=== PATIENT | male | born 1950 | race Caucasian/White ===

== ENCOUNTER 2016-11-20 12:11 | Emergency (ER) | payer MEDICARE, OTHER ==
[2016-11-20 12:52] LABS: #Basophils 0.1 thou/uL (0.0-0.2); #Eosinphils 0.4 thou/uL (0.0-0.7); #Lymphocytes 2.4 thou/uL (1.20-3.40); #Monocytes 0.8 thou/uL (0.11-0.59); #Neutrophils 4.2 thou/uL (1.40-6.50); %Basophils 1.2 % (0.0-1.0); %Eosinophils 4.8 % (0.0-10.0); %Monocytes 10.6 % (0.0-10.0); Hematocrit 43.1 % (42.0-52.0); Mean Platelet Volume 9.1 fL (7.4-10.4); Red Blood Cell (RBC) Count 4.59 mill/uL (4.70-6.10); White Blood Cell (WBC) Count 7.9 thou/uL (4.8-10.8)
[2016-11-20 13:08] LABS: Troponin I Less than 0.010 ng/mL (< 0.028)
[2016-11-20 13:10] LABS: Acetaminophen Less than 3.0 mcg/mL (10.0-30.0); Anion Gap 15 mmol/L (10-20); BUN (Urea Nitrogen) 23 mg/dL (8.4-25.7); Calc. Creatinine Clearance 0 mL/min (70-130); Calcium 9.5 mg/dL (7.8-10.44); Carbon Dioxide 27 mmol/L (23-31); Chloride 104 mmol/L (98-107); Estimated GFR-MDRD 66; Salicylate Less than 5.0 mg/dL (15.0-30.0)
--- NOTE | 2016-11-20 13:26 | CT ---
EXAM: NONCONTRAST HEAD CT: HISTORY: Altered mental status. Loss and inability to speak and converse in normal fashion at 11:30 this mor ana. Stroke alert. COMPARISON: None. TECHNIQUE: Noncontrast head CT is performed from the skull base to the skull vertex. FINDINGS: There is a hyperdense focus in the right cerebellar hemisphere measuring 3.1 x 2.7 cm. There is adj acent edema. There is a hyperdense focus in the left frontal lobe, subcortical white matter in loca tion measuring 1.1 x 1.3 cm. There is a hyperdense focus in the left centrum semiovale, near the ve rtex, measuring 1.7 x 1.6 cm. This hyperdensity is also located in the subcortical white matter wit h associated edema and mild sulcal effacement. No midline shift. Basilar cisterns are patent. Int act calvarium. Adequate aeration of the sinuses and mastoid air cells. Cavernous carotid atheroscl erosis. IMPRESSION: Three separate hyperdense foci with what appears to be associated vasogenic edema. Hemorrhagic meta static lesions are favored. Further evaluation with brain MRI is recommended. Results of the study discussed with Dr. Whelan 11/20/16 at 1251 p.m. CODE CR POS: [facility]
--- NOTE | 2016-11-20 13:40 | RAD ---
EXAM: ONE VIEW CHEST: HISTORY: Altered mental status. FINDINGS: Normal cardiac silhouette. The pulmonary vessels and hilum are normal. Costophrenic angles are carter ar. No masses or consolidation. No pneumothorax or osseous abnormalities. IMPRESSION: No acute cardiopulmonary process. POS: [facility]
--- NOTE | 2016-11-20 13:41 | ERRECORD ---
[facility] EMERGENCY RECORD HPI MENTAL STATUS CHANGES (12:22 RWAG) CHIEF COMPLAINT: Patient presents for evaluation of confusion. HISTORIAN: History provided by patient, History provided by patient's spouse, "was having trouble forming words" resolved now. LOCATION: No localizing symptoms. QUALITY: Patient is alert and oriented to person, place and time, [place] coma score is 15. SEVERITY: Maximum severity of symptoms mild, Currently symptoms are mild, Maximum severity of pain rated as 0/10, Current severity of pain rated as 0/10. TIME COURSE: Patient unable to describe onset of symptoms, Symptoms have resolved. ASSOCIATED WITH: Associated symptoms reviewed. EXACERBATED BY: Patient's condition exacerbated by nothing. RELIEVED BY: Patient's condition relieved by nothing. ROS (12:24 RWAG) CONSTITUTIONAL: Negative constitutional review of systems. EYES: Negative eye review of systems. ENT: Negative ears, nose, throat review of systems. CARDIOVASCULAR: Negative cardiovascular review of systems. RESPIRATORY: Negative respiratory review of systems. GI: Negative gastrointestinal review of systems. GENITOURINARY MALE: Negative genitourinary review of systems. MUSCULOSKELETAL: Negative musculoskeletal review of systems. SKIN: Negative skin review of systems. NEUROLOGIC: Negative neurologic review of systems. ENDOCRINE: Negative endocrine review of systems. HEMO/LYMPHATIC: Normal hematologic/lymphatic system review. ALLERGIC/IMMUNOLOGIC: Normal allergy/immunologic system review. PSYCHIATRIC: Negative psychiatric review of systems. NOTES: All systems reviewed, negative except as described above. PAST MEDICAL HISTORY (12:21 JPAR) MEDICAL HISTORY: Notes: MELANOMA CANCER, Flu vaccine up to date, Tetanus immunization up to date, Past medical history includes endocrine disease, hypothyroidism, Past medical history includes history of hypertension. MALE SURGICAL HISTORY: Surgical history of appendectomy. PSYCHIATRIC HISTORY: No previous psychiatric history. SOCIAL HISTORY: Patient drinks every day, less than 5 drinks per day, Patient denies drug use, Patient currently uses tobacco, chews tobacco. KNOWN ALLERGIES No Known Drug Allergies CURRENT MEDICATIONS No recorded medications &a-1R&a+25V*p+0X*i1101L*c152B*c15G*c2P*p-0X&a-25V&a+1R Name: Itz Viramontes : [id number] MedRec: [id number] AcctNum: [id number] Prepared: Heriberto Nov 20, 2016 14:12 by Interface Page 1 of 2 pMD [facility] EMERGENCY RECORD VITAL SIGNS (12:15 JPAR) VITAL SIGNS: BP: 177/85, Pulse: 67, Resp: 18, Temp: 98.9 (Oral), Pain: 0, O2 sat: 100 on Room Air, Time: 11/20/2016 12:15. PHYSICAL EXAM (12:24 RWAG) CONSTITUTIONAL: Vital Signs Reviewed. HEAD: Head exam normal. EYES: Eye exam normal. ENT: ENT exam normal. NECK: Neck exam normal. RESPIRATORY CHEST: Respiratory and chest exam normal. CARDIOVASCULAR: Cardiovascular assessment normal. ABDOMEN MALE: Abdominal exam normal. BACK: Back exam normal. UPPER EXTREMITY: Upper extremity exam normal. LOWER EXTREMITY: Lower extremity exam normal. NEURO: Neuro exam normal, Neuro exam findings include patient oriented to person, place and time, Speech normal, Gait normal, [place] coma scale 15. SKIN: Skin exam normal. LYMPHATIC: Lymphatic exam normal. PSYCHIATRIC: Psychiatric exam normal. EKG INTERPRETATION (12:31 RWAG) 12 LEAD EKG INTERPRETATION: 12 lead EKG interpreted by Emergency Department Physician at time of study, 12 lead EKG shows normal sinus rhythm, Rate (beats per minute): 63, with no ectopics, No previous EKG available for comparison, Conduction with, incomplete right bundle branch block, T waves normal, [place] normal, Clinical impression:, non-specific EKG. DOCTOR NOTES (12:33 RWAG) TEXT: 12:33 initial NIH score 3. PROBLEM LIST No recorded problems DIAGNOSIS (12:53 RWAG) FINAL: PRIMARY: hemorhagic stroke, ADDITIONAL: brain metastasis. PRESCRIPTION No recorded prescriptions DISPOSITION PATIENT: Disposition Type: Transfer, Disposition: Transfer to [facility], Disposition Transport: Ambulance, Condition: Good. (12:50 RWAG) Patient left the department. (13:33 JPAR) Hernandez: JPAR=Parambryson, Edward WILSON RWAG=MD Tip, Billy &a-1R&a+25V*p+0X*[id number]*c152B*c15G*c2P*p-0X&a-25V&a+1R Name: Itz Viramontes : [id number] MedRec: [id number] AcctNum: [id number] Prepared: Sat Nov 20, 2016 14:12 by Interface Page 2 of 2 pMD MTDD
--- NOTE | 2016-11-20 13:47 | PICIS ---
[facility] EMERGENCY RECORD TRIAGE ([facility] Nov 20, 2016 12:19 JPAR) TRIAGE NOTES: PATIENT REPORTS BECOMING DISORIENTED ABOUT 1130. ([facility] Nov 20, 2016 12:19 JPAR) PATIENT: NAME: Itz Viramontes, AGE: 66, GENDER: male, : [id number], TIME OF GREET: Sat Nov 20, 2016 12:12, PREFERRED LANGUAGE: Maori, ECODE BILLING MAP: [facility], SSN: [id number], Zip Code: [address], KG WEIGHT: 90.72, PHONE: , , , PERSON ID: [id number]. ([facility] Nov 20, 2016 12:19 JPAR) COMPLAINT: DISORIENTED/STROKE SYMPTOMS. ([facility] Nov 20, 2016 12:19 JPAR) ADMISSION: URGENCY: 2 Emergent, ADMISSION SOURCE: Home, TRANSPORT: CAR, BED: ER -02. ([facility] Nov 20, 2016 12:19 JPAR) SIRS SCORING: Heart Rate 55-109 (0), Temp range 96.8-101.1 (0), respiratory rate 12-24 (0), Mental Status altered: no (0), Infection or Suspected Infection: No. (12:21 JPAR) TRIAGE SCREENING: Patient denies suicidal ideation, Patient denies presence of domestic violence. (12:21 JPAR) PROVIDERS: TRIAGE NURSE: Edward Sin RN. ([facility] Nov 20, 2016 12:19 JPAR) VITAL SIGNS: BP 177/85, Pulse 67, Resp 18, Temp 98.9, (Oral), Pain 0, O2 Sat 100, on Room Air, Time 11/20/2016 12:15. (12:15 JPAR) KNOWN ALLERGIES No Known Drug Allergies CURRENT MEDICATIONS No recorded medications VITAL SIGNS (12:15 JPAR) VITAL SIGNS: BP: 177/85, Pulse: 67, Resp: 18, Temp: 98.9 (Oral), Pain: 0, O2 sat: 100 on Room Air, Time: 11/20/2016 12:15. NURSING ASSESSMENT: CVA ASSESSMENT TOOL CONSTITUTIONAL: Patient arrives ambulatory, Gait steady, History obtained from, Patient appears, confused, Patient cooperative, Patient alert, Oriented to person, place and time, Skin warm, Skin dry, Skin normal in color, Mucous membranes pink, Mucous membranes moist, Patient complains of Difficulty concentrating and remembering things, 30 minutes onset. (12:19 JPAR) PAIN: Patient rates pain as 0 out of 10. (12:19 JPAR) CVA ASSESSMENT: CVA assessment findings include sudden onset of symptoms, at 30 minutes, Pupils equally round and reactive to light, Left pupil 2 mm in size, Right pupil 2 mm in size, Speech, dysphasic, Hand grasps equal, Foot press equal, Upper extremity motor strength, strong on the left, strong on the right, Lower extremity motor strength strong, no facial numbness, no facial droop, no numbness to upper extremities, no numbness to lower extremities, [place] coma scale:, Eye opening: (4) - Spontaneous, Verbal: (5) - Oriented/conversive, Motor: (6) - Obeys &a-1R&a+25V*p+0X*p0446E*c152B*c15G*c2P*p-0X&a-25V&a+1R Name: Itz Viramontes : M66 MedRec: [id number] AcctNum: [id number] Prepared: Sat Nov 20, 2016 14:18 by Interface Page 1 of 10 pMD [facility] EMERGENCY RECORD commands/Spontaneous, GCS Total: 15, no associated nystagmus, no associated visual changes. (12:19 JPAR) NIHSS: CVA assessment findings: Level of consciousness: alert, keenly responsive (0), Questions: answers both questions correctly (0), Commands: performs both tasks correctly (0), Best gaze: normal (0), Visual: no visual loss (0), Facial palsy: normal symmetrical movement (0), Motor Left Arm: no drift, arm stays 90/45 degrees for full 10 seconds (0), Motor Right Arm: no drift, arm stays 90/45 degrees for full 10 seconds (0), Motor left leg: no drift, leg stays at 30 degrees for full five seconds (0), Motor right leg: no drift, leg stays at 30 degrees for full five seconds (0), Limb ataxia absent (0), Sensory: mild to moderate sensory loss; patient feels pinprick is less sharp or is dull on the affected side; or there is a loss of superficial pain with pinprick, but patient is aware he/she is being touched (1), Best language: mild to moderate aphasia; some obvious loss of fluency or facility of comprehension without significant limitation on ideas expressed or form of expression. Reduction of speech and/or comprehension, however, makes conversation about provided material difficult or impossible (1), Dysarthria: mild to moderate: patient slurs at least some words and, at worst, can be understood with some difficulty (1), Extinction and Inattention: normal (0), Total score 3. (12:19 JPAR) CVA assessment findings: Level of consciousness: alert, keenly responsive (0), Questions: answers both questions correctly (0), Commands: performs both tasks correctly (0), Best gaze: normal (0), Visual: no visual loss (0), Facial palsy: normal symmetrical movement (0), Motor Left Arm: no drift, arm stays 90/45 degrees for full 10 seconds (0), Motor Right Arm: no drift, arm stays 90/45 degrees for full 10 seconds (0), Motor left leg: no drift, leg stays at 30 degrees for full five seconds (0), Motor right leg: no drift, leg stays at 30 degrees for full five seconds (0), Limb ataxia absent (0), Sensory: mild to moderate sensory loss; patient feels pinprick is less sharp or is dull on the affected side; or there is a loss of superficial pain with pinprick, but patient is aware he/she is being touched (1), Best language: mild to moderate aphasia; some obvious loss of fluency or facility of comprehension without significant limitation on ideas expressed or form of expression. Reduction of speech and/or comprehension, however, makes conversation about provided material difficult or impossible (1), Dysarthria: mild to moderate: patient slurs at least some words and, at worst, can be understood with some difficulty (1), Extinction and Inattention: normal (0), Total score 3. (13:00 JPAR) CVA assessment findings: Level of consciousness: alert, keenly responsive (0), Questions: answers both questions correctly (0), Commands: performs both tasks correctly (0), Best gaze: normal (0), Visual: no visual loss (0), Facial palsy: normal symmetrical movement (0), Motor Left Arm: no drift, arm stays 90/45 degrees for full 10 seconds (0), Motor Right Arm: no drift, arm stays 90/45 degrees for full 10 seconds (0), Motor left leg: no drift, leg stays at 30 degrees for &a-1R&a+25V*p+0X*m1610U*c152B*c15G*c2P*p-0X&a-25V&a+1R Name: Itz Viramontes : M66 MedRec: [id number] AcctNum: [id number] Prepared: Sat Nov 20, 2016 14:18 by Interface Page 2 of 10 pMD [facility] EMERGENCY RECORD full five seconds (0), Motor right leg: no drift, leg stays at 30 degrees for full five seconds (0), Limb ataxia absent (0), Sensory: mild to moderate sensory loss; patient feels pinprick is less sharp or is dull on the affected side; or there is a loss of superficial pain with pinprick, but patient is aware he/she is being touched (1), Best language: mild to moderate aphasia; some obvious loss of fluency or facility of comprehension without significant limitation on ideas expressed or form of expression. Reduction of speech and/or comprehension, however, makes conversation about provided material difficult or impossible (1), Dysarthria: mild to moderate: patient slurs at least some words and, at worst, can be understood with some difficulty (1), Extinction and Inattention: normal (0), Total score 3. (13:25 JPAR) SAFETY: Side rails up, Cart/Stretcher in lowest position, Family at bedside, Call light within reach, Hospital ID band on. (12:19 JPAR) NURSING ASSESSMENT: DYSPHAGIA SCREENING (12:31 JPAR) SWALLOWING EVALUATION: Patient clear for swallowing evaluation; no positive responses, Swallowing evaluation approved by Dr. WHELAN, Following administration of 3 ounces of water by a cup, patient exhibited no signs or symptoms of aspiration, passed evaluation. NURSING PROCEDURE: BEDSIDE TESTING (12:20 JPAR) PATIENT IDENTIFIER: Patient actively involved in identification process, Patient's identity verified by patient stating name, Patient's identity verified by patient stating date, Patient's identity verified by hospital ID bracelet. GLUCOSE: Glucose testing indicated for mental status changes, Capillary blood sample, Result (mg/dl) 113. NURSING PROCEDURE: SPIKE MACHINE HEATER (12:19 JPAR) PATIENT IDENTIFIER: Patient actively involved in identification process, Patient's identity verified by patient stating name, Patient's identity verified by patient stating date, Patient's identity verified by hospital ID bracelet. SPIKE MACHINE HEATER: Patient placed on yeast pumper, Heart rate: 62, Patient placed on non-invasive blood pressure monitor, with disposable blood pressure cuff applied, Patient placed on continuous pulse oximetry, Adult/pediatric oxisensor applied. NURSING PROCEDURE: EKG CHART (12:28 JPAR) PATIENT IDENTIFIER: Patient actively involved in identification process, Patient's identity verified by patient stating name, Patient's identity verified by patient stating date, Patient's identity verified by hospital ID bracelet. EKG: EKG indicated for AMS. FOLLOW-UP: After procedure, EKG for interpretation given to Dr. WHELAN. &a-1R&a+25V*p+0X*s0573D*c152B*c15G*c2P*p-0X&a-25V&a+1R Name: Itz Viramontes : M66 MedRec: [id number] AcctNum: [id number] Prepared: Sat Nov 20, 2016 14:18 by Interface Page 3 of 10 D [facility] EMERGENCY RECORD NURSING PROCEDURE: IV (12:22 JPAR) PATIENT IDENITIFIER: Patient actively involved in identification process, Patient's identity verified by patient stating name, Patient's identity verified by patient stating date, Patient's identity verified by hospital ID bracelet. IV SITE 1: IV therapy indicated for hydration, IV therapy indicated for medication administration, IV established, to the left antecubital, using a 20 gauge catheter, in one attempt, IV site prepped with CHLORAPREP, Saline lock established, Flushed with normal saline (mls): 10, Labs drawn at time of placement, labeled in the presence of the patient and sent to lab. NURSING PROCEDURE: NURSE NOTES NURSES NOTES: Notes: PATIENT REPORTS HAVING A BOTTLE OF WINE LAST NIGHT AT A [facility]. (12:23 JPAR) Notes: PATIENT'S SON REPORTS THAT HE HAS HAD TOOTH INFECTION. REPORTS THAT HE HAS HAD A HEADACHE FOR A WEEK. DENIES LOC OR ANY OTHER COMPLICATIONS. (12:34 JPAR) NURSING PROCEDURE: TRANSFER (13:27 JPAR) TRANSFER: Reason for transfer need for specialized care, Diagnosis: Hemmorhagic Stroke, Accepting institution: [facility], Accepting physician: Tracy, Referring physician: Tip, Transported by urgent ambulance, accompanied by emergency medical services personnel, Report called to receiving facility, [facility]arl[facility], Provided opportunity to answer questions, Summary of Care printed, Copy of patient record prepared for receiving facility, Patient consent for transfer signed, Family member contacted, At bedside. BELONGINGS: Belongings and valuables with patient at time of discharge include:, Belongings sent home with family member, Valuables sent home with family. SAFETY: Side rails up, Cart/Stretcher in lowest position, Family at bedside, Call light within reach, Hospital ID band on. NURSING PROCEDURE: TRANSPORT TO TESTS (12:34 JPAR) PATIENT IDENTIFIER: Patient actively involved in identification process, Patient's identity verified by patient stating name, Patient's identity verified by patient stating date, Patient's identity verified by hospital ID bracelet. TRANSPORT TO TESTS: Transport indicated to facilitate diagnosis, Patient transported to CT scan, via cart, Accompanied by x-ray insulator technician. NOTES: Procedure done by STEFANIA WILSON. ORDER DETAILS Order Name: [place], Status: Done, Time: 12:29 11/20/2016, User: MIN, - Ordered for: MD Whelan Richard, - Entered by: MD Whelan Richard - Sat Nov 20, 2016 12:21, - Quantity: 1, &a-1R&a+25V*p+0X*h1702V*c152B*c15G*c2P*p-0X&a-25V&a+1R Name: Itz Viramontes : M66 MedRec: [id number] AcctNum: [id number] Prepared: Sat Nov 20, 2016 14:18 by Interface Page 4 of 10 pMD [facility] EMERGENCY RECORD Order Name: Basic Metabolic Panel, Status: Active, Time: 12:21 11/20/2016, User: DENIS, - Ordered for: MD Whelan Richard, - Entered by: MD Whelan Richard - Sat Nov 20, 2016 12:21, - Quantity: 1, Order Name: Cardiac Profile w/CKMB & Troponin - I, Status: Active, Time: 12:21 11/20/2016, User: TIARRA, - Ordered for: MD Whelan Richard, - Entered by: MD Whelan Richard - Sat Nov 20, 2016 12:21, - Quantity: 1, Order Name: CBC with Differential, Status: Active, Time: 12:21 11/20/2016, User: TIARRA, - Ordered for: MD Whelan Richard, - Entered by: MD Whelan Richard - Sat Nov 20, 2016 12:21, - Quantity: 1, Order Name: CT Brain WO Con, Status: Active, Time: 12:21 11/20/2016, User: TIARRA, - Ordered for: MD Whelan Richard, - Entered by: MD Whelan Richard - Sat Nov 20, 2016 12:21, - Quantity: 1, Order Name: Drug Screen, Serum, Status: Active, Time: 12:21 11/20/2016, User: TIARRA, - Ordered for: MD Whelan Richard, - Entered by: MD Whelan Richard - Sat Nov 20, 2016 12:21, - Quantity: 1, Order Name: EKG 12 Lead in Emergency Room, Status: Active, Time: 12:21 11/20/2016, User: TIARRA, - Ordered for: MD Whelan Richard, - Entered by: MD Whelan Richard - Sat Nov 20, 2016 12:21, - Quantity: 1, Order Name: NIHSS, Status: Done, Time: 12:32 11/20/2016, User: MIN, - Ordered for: MD Whelan Richard, - Entered by: MD Whelan Richard - Sat Nov 20, 2016 12:21, - Quantity: 1, Order Name: NPO IN ED, Status: Canceled, Time: 12:32 11/20/2016, User: MIN, - Ordered for: MD Whelan Richard, - Entered by: MD Whelan Richard - Sat Nov 20, 2016 12:21, - Reason for Cancel: DYSPHAGIA SCREENING, - Quantity: 1, Order Name: SALINE LOCK, Status: Done, Time: 12:29 11/20/2016, User: MIN, - Ordered for: MD Whelan Richard, - Entered by: MD Whelan Richard - Sat Nov 20, 2016 12:21, - Quantity: 1, Order Name: Urinalysis with Microscopic, Status: Active, Time: 12:21 11/20/2016, User: TIARRA, - Ordered for: MD Whelan Richard, - Entered by: MD Whelan Richard - Sat Nov 20, 2016 12:21, - Quantity: 1, Order Name: XR Chest 1 View Portable, Status: Active, Time: 12:21 &a-1R&a+25V*p+0X*a5010E*c152B*c15G*c2P*p-0X&a-25V&a+1R Name: Itz Viramontes : M66 MedRec: [id number] AcctNum: [id number] Prepared: Sat Nov 20, 2016 14:18 by Interface Page 5 of 10 pMD [facility] EMERGENCY RECORD 11/20/2016, User: TIARRA, - Ordered for: MD Whelan Richard, - Entered by: MD Whelan Richard - Sat Nov 20, 2016 12:21, - Quantity: 1. HPI MENTAL STATUS CHANGES (12:22 RWAG) CHIEF COMPLAINT: Patient presents for evaluation of confusion. HISTORIAN: History provided by patient, History provided by patient's spouse, "was having trouble forming words" resolved now. LOCATION: No localizing symptoms. QUALITY: Patient is alert and oriented to person, place and time, [place] coma score is 15. SEVERITY: Maximum severity of symptoms mild, Currently symptoms are mild, Maximum severity of pain rated as 0/10, Current severity of pain rated as 0/10. TIME COURSE: Patient unable to describe onset of symptoms, Symptoms have resolved. ASSOCIATED WITH: Associated symptoms reviewed. EXACERBATED BY: Patient's condition exacerbated by nothing. RELIEVED BY: Patient's condition relieved by nothing. ROS (12:24 RWAG) CONSTITUTIONAL: Negative constitutional review of systems. EYES: Negative eye review of systems. ENT: Negative ears, nose, throat review of systems. CARDIOVASCULAR: Negative cardiovascular review of systems. RESPIRATORY: Negative respiratory review of systems. GI: Negative gastrointestinal review of systems. GENITOURINARY MALE: Negative genitourinary review of systems. MUSCULOSKELETAL: Negative musculoskeletal review of systems. SKIN: Negative skin review of systems. NEUROLOGIC: Negative neurologic review of systems. ENDOCRINE: Negative endocrine review of systems. HEMO/LYMPHATIC: Normal hematologic/lymphatic system review. ALLERGIC/IMMUNOLOGIC: Normal allergy/immunologic system review. PSYCHIATRIC: Negative psychiatric review of systems. NOTES: All systems reviewed, negative except as described above. PAST MEDICAL HISTORY (12:21 JPAR) MEDICAL HISTORY: Notes: MELANOMA CANCER, Flu vaccine up to date, Tetanus immunization up to date, Past medical history includes endocrine disease, hypothyroidism, Past medical history includes history of hypertension. MALE SURGICAL HISTORY: Surgical history of appendectomy. PSYCHIATRIC HISTORY: No previous psychiatric history. SOCIAL HISTORY: Patient drinks every day, less than 5 drinks per day, Patient denies drug use, Patient currently uses tobacco, chews tobacco. PHYSICAL EXAM (12:24 RWAG) &a-1R&a+25V*p+0X*j5597X*c152B*c15G*c2P*p-0X&a-25V&a+1R Name: Itz Viramontes : M66 MedRec: [id number] AcctNum: [id number] Prepared: Sat Nov 20, 2016 14:18 by Interface Page 6 of 10 D [facility] EMERGENCY RECORD CONSTITUTIONAL: Vital Signs Reviewed. HEAD: Head exam normal. EYES: Eye exam normal. ENT: ENT exam normal. NECK: Neck exam normal. RESPIRATORY CHEST: Respiratory and chest exam normal. CARDIOVASCULAR: Cardiovascular assessment normal. ABDOMEN MALE: Abdominal exam normal. BACK: Back exam normal. UPPER EXTREMITY: Upper extremity exam normal. LOWER EXTREMITY: Lower extremity exam normal. NEURO: Neuro exam normal, Neuro exam findings include patient oriented to person, place and time, Speech normal, Gait normal, [place] coma scale 15. SKIN: Skin exam normal. LYMPHATIC: Lymphatic exam normal. PSYCHIATRIC: Psychiatric exam normal. EVENTS TRANSFER: Triage to Emergency Emergency Room -02. (Sat Nov 20, 2016 12:19 JPAR) Removed from Emergency Emergency Room -02. (13:33 JPAR) EKG INTERPRETATION (12:31 RWAG) 12 LEAD EKG INTERPRETATION: 12 lead EKG interpreted by Emergency Department Physician at time of study, 12 lead EKG shows normal sinus rhythm, Rate (beats per minute): 63, with no ectopics, No previous EKG available for comparison, Conduction with, incomplete right bundle branch block, T waves normal, Gardner normal, Clinical impression:, non-specific EKG. DOCTOR NOTES (12:33 RWAG) TEXT: 12:33 initial NIH score 3. PROBLEM LIST No recorded problems DIAGNOSIS (12:53 RWAG) FINAL: PRIMARY: hemorhagic stroke, ADDITIONAL: brain metastasis. DISPOSITION PATIENT: Disposition Type: Transfer, Disposition: Transfer to [facility], Disposition Transport: Ambulance, Condition: Good. (12:50 RWAG) Patient left the department. (13:33 JPAR) PRESCRIPTION No recorded prescriptions IMAGING &a-1R&a+25V*p+0X*r5176I*c152B*c15G*c2P*p-0X&a-25V&a+1R Name: Itz Viramontes : M66 MedRec: [id number] AcctNum: [id number] Prepared: Sat Nov 20, 2016 14:18 by Interface Page 7 of 10 pMD [facility] EMERGENCY RECORD *MEMORANDUM OF TRANSFER: Image captured from scanner. (13:01 REZE) CONSENTS: Image captured from scanner. (13:02 REZE) *EKG: Image captured from scanner. (13:02 REZE) TPA CHECKLIST: Image captured from scanner. (13:11 JPAR) DYSPHAGIA SCREEN: Image captured from scanner. (13:15 REZE) NIHH: Image captured from scanner. (13:15 REZE) TRANSFER WORKSHEET: Image captured from scanner. (13:34 JPAR) *SUPPLY CHARGE SHEET: Image captured from scanner. (13:35 JPAR) ADMIN DIGITAL SIGNATURE: ParamKATIE massey, Edward. (13:32 JPAR) MD Tip, Billy. (14:09 RWAG) RESULTS LABORATORY: CBC with Differential Collection DT: Sat Nov 20, 2016 12:41, White Blood Cell (WBC) Count 7.9 thou/uL, Range (4.8-10.8), *Red Blood Cell (RBC) Count 4.59 - L mill/uL, Range (4.70-6.10), Hemoglobin 14.4 g/dL, Range (14.0-18.0), Hematocrit 43.1 %, Range (42.0-52.0), Mean Corpuscular Volume 93.7 fl, Range (80.0-94.0), *Mean Corpuscular Hemoglobin 31.3 - H pg, Range (27.0-31.0), Mean Corpuscular HGB CONC 33.4 g/dL, Range (32.0-36.0), RBC Distribution Width 11.7 %, Range (11.5-14.5), Platelet Count 281 thou/uL, Range (130-400), Mean Platelet Volume 9.1 fL, Range (7.4-10.4), %Neutrophils 53.4 %, Range (42.0-75.0), %Lymphocytes 30.0 %, Range (21.0-51.0), *%Monocytes 10.6 - H %, Range (0.0-10.0), %Eosinophils 4.8 %, Range (0.0-10.0), *%Basophils 1.2 - H %, Range (0.0-1.0), #Neutrophils 4.2 thou/uL, Range (1.40-6.50), #Lymphocytes 2.4 thou/uL, Range (1.20-3.40), *#Monocytes 0.8 - H thou/uL, Range (0.11-0.59), #Eosinphils 0.4 thou/uL, Range (0.0-0.7), #Basophils 0.1 thou/uL, Range (0.0-0.2). (12:54 RWAG) Cardiac Profile w/CKMB & TropI Collection DT: Sat Nov 20, 2016 12:41, CKMB 2.6 ng/mL, Range (0-6.6), Troponin I Less than 0.010 ng/mL, Range (< 0.028), Reference Range , 0.00 - 0.028 ng/mL Negative 0.029 - 0.29 ng/mL , Indeterminate Greater or Equal to 0.3 ng/mL Strongly suggests IN , . (13:08 RWAG) Cardiac Profile w/CKMB & TropI Collection DT: [facility] Nov 20, 2016 12:41, CKMB 2.6 ng/mL, Range (0-6.6), Troponin I Less than 0.010 ng/mL, Range (< 0.028), Reference Range &a-1R&a+25V*p+0X*i1876K*c152B*c15G*c2P*p-0X&a-25V&a+1R Name: Itz Viramontes : M66 MedRec: [id number] AcctNum: [id number] Prepared: [facility] Nov 20, 2016 14:18 by Interface Page 8 of 10 pMD [facility] EMERGENCY RECORD , 0.00 - 0.028 ng/mL Negative 0.029 - 0.29 ng/mL , Indeterminate Greater or Equal to 0.3 ng/mL Strongly suggests IN , . (13:09 [facility]) Drug Screen, Blood Collection DT: [facility] Nov 20, 2016 12:41, *Acetaminophen Less than 3.0 - L mcg/mL, Range (10.0-30.0), Therapeutic Range: 10.0 - 30.0 ug/mL Toxic Range: Possible, toxicity: 150 - 200 ug/mL Probable toxicity: Greater than 200, ug/mL *IMPORTANT TESTING INFORMATION* The half-life of NAC is 2, hours. The total NAC clearance is 5.6 hours for adults and 11 hours for, Newborns. Testing acetaminophen levels prior to a reasonable time frame, for clearance can cause falsely decreased acetaminophen levels. , Alcohol Less than 10 mg/dL, Range (Less than 10), The pharmacological response to blood alcohol levels may vary from, individual to individual. Negative: Less than 10, mg/dL Toxic: 50 - 100 mg/dL , Depression of BEEF SPLITTER: Greater than 100 mg/dL , Fatalities reported: Greater than 400 mg/dL , *Salicylate Less than 5.0 - L mg/dL, Range (15.0-30.0). (13:13 [facility]) Basic Metabolic Panel Collection DT: [facility] Nov 20, 2016 12:41, Sodium 142 mmol/L, Range (136-145), Potassium 3.8 mmol/L, Range (3.5-5.1), Chloride 104 mmol/L, Range (98-107), Carbon Dioxide 27 mmol/L, Range (23-31), Anion Gap 15 mmol/L, Range (10-20), BUN (Urea Nitrogen) 23 mg/dL, Range (8.4-25.7), Creatinine 1.11 mg/dL, Range (0.7-1.3), Estimated GFR-MDRD 66 , Reference Range for Estimated GFR: Greater than 90, mL/min/1.73 m2 NOTE: The MDRD equation has not been validated for use, with the elderly (over 70 years of age), women, patients with, serious comorbid condition or persons with extremes of body size, muscle, mass, or nutritional status. , *Glucose 134 - H mg/dL, Range (80-115), Calcium 9.5 mg/dL, Range (7.8-10.44). (13:13 RWAG) Hernandez: &a-1R&a+25V*p+0X*k6874M*c152B*c15G*c2P*p-0X&a-25V&a+1R Name: Itz Viramontes : M66 MedRec: [id number] AcctNum: [id number] Prepared: Sat Nov 20, 2016 14:18 by Interface Page 9 of 10 pMD [facility] EMERGENCY RECORD MIN=KATIE Sin, Edward MERCADO=Nishi Cao=KATIE Lopez, Gisella RWAG=MD Tip, Billy &a-1R&a+25V*p+0X*d4555D*c152B*c15G*c2P*p-0X&a-25V&a+1R Name: Itz Viramontes : M66 MedRec: [id number] AcctNum: [id number] Prepared: Sat Nov 20, 2016 14:18 by Interface Page [address] [facility]
== END 2016-11-20 13:27 | disposition short-term general hospital (02) ==
LOC: NAV ERS 12:11
DX: I61.9 Nontraumatic intracerebral hemorrhage, unspecified (principal); C79.31 Secondary malignant neoplasm of brain; E03.9 Hypothyroidism, unspecified; I10 Essential (primary) hypertension
CPT/HCPCS: 36416; 70450; 71010; 80048; 80307; 82553; 84484; 85025; 93005; G0479

== ENCOUNTER 2017-01-13 14:03 | Outpatient (CLI) | payer MEDICARE, BC ==
[2017-01-13 14:58] LABS: ALT (SGPT) 76 U/L (0-55); AST (SGOT) 51 U/L (5-34); Bilirubin, Total 0.7 mg/dL (0.2-1.2); Calc. Creatinine Clearance 0 mL/min (70-130); Estimated GFR-MDRD Greater than 90; Phosphorus 3.1 mg/dL (2.3-4.7)
[2017-01-13 15:47] LABS: Band 10 % (5-11); Crenated RBC SLIGHT = 1-5 cells (100X) (None Seen); Hematocrit 32.4 % (42.0-52.0); Metamyelocyte 1 % (0-0); Neutrophil 85 % (42-75); Reactive Lymphocytes 1 % (0-10); Red Blood Cell (RBC) Count 3.67 mill/uL (4.70-6.10); White Blood Cell (WBC) Count 25.1 thou/uL (4.8-10.8)
== END 2017-01-13 14:04 | disposition home or self-care (01) ==
LOC: NAV LAB 14:03
DX: T45.1X5A Adverse effect of antineoplastic and immunosuppressive drugs, initial encounter (principal); C43.9 Malignant melanoma of skin, unspecified
CPT/HCPCS: 82247; 82330; 82565; 83735; 84100; 84132; 84295; 84450; 84460; 85025

== ENCOUNTER 2017-01-17 16:06 | Outpatient (CLI) | payer MEDICARE, BC ==
[2017-01-17 16:57] LABS: #Basophils 0.1 thou/uL (0.0-0.2); #Monocytes 0.7 thou/uL (0.11-0.59); %Basophils 0.5 % (0.0-1.0); %Lymphocytes 6.5 % (21.0-51.0); %Monocytes 4.2 % (0.0-10.0); Hematocrit 32.4 % (42.0-52.0); Red Blood Cell (RBC) Count 3.62 mill/uL (4.70-6.10); White Blood Cell (WBC) Count 15.8 thou/uL (4.8-10.8)
[2017-01-17 17:15] LABS: ALT (SGPT) 75 U/L (0-55); AST (SGOT) 52 U/L (5-34); Bilirubin, Total 0.6 mg/dL (0.2-1.2); Calc. Creatinine Clearance 0 mL/min (70-130); Estimated GFR-MDRD Greater than 90; Phosphorus 3.4 mg/dL (2.3-4.7)
== END 2017-01-17 16:07 | disposition home or self-care (01) ==
LOC: NAV LAB 16:06
DX: T45.1X5A Adverse effect of antineoplastic and immunosuppressive drugs, initial encounter (principal); C43.9 Malignant melanoma of skin, unspecified
CPT/HCPCS: 36415; 82247; 82330; 82565; 83735; 84100; 84132; 84295; 84450; 84460; 85025

== ENCOUNTER 2017-01-20 15:04 | Outpatient (CLI) | payer MEDICARE, BC ==
[2017-01-20 15:36] LABS: #Basophils 0.1 thou/uL (0.0-0.2); #Lymphocytes 1.2 thou/uL (1.20-3.40); #Monocytes 0.6 thou/uL (0.11-0.59); #Neutrophils 14.3 thou/uL (1.40-6.50); %Basophils 0.7 % (0.0-1.0); %Eosinophils 0.1 % (0.0-10.0); %Lymphocytes 7.7 % (21.0-51.0); %Monocytes 3.4 % (0.0-10.0); Hematocrit 34.5 % (42.0-52.0); Mean Platelet Volume 8.3 fL (7.4-10.4); Red Blood Cell (RBC) Count 3.83 mill/uL (4.70-6.10); White Blood Cell (WBC) Count 16.2 thou/uL (4.8-10.8)
[2017-01-20 15:56] LABS: ALT (SGPT) 118 U/L (0-55); AST (SGOT) 79 U/L (5-34); Bilirubin, Total 0.5 mg/dL (0.2-1.2); Calc. Creatinine Clearance 0 mL/min (70-130); Estimated GFR-MDRD Greater than 90; Phosphorus 3.3 mg/dL (2.3-4.7)
== END 2017-01-20 15:05 | disposition home or self-care (01) ==
LOC: NAV LAB 15:04
PROVIDERS: ATTEND Clinical Nurse Specialist
DX: C43.9 Malignant melanoma of skin, unspecified (principal); T45.1X5A Adverse effect of antineoplastic and immunosuppressive drugs, initial encounter
CPT/HCPCS: 36415; 82247; 82330; 82565; 83735; 84100; 84132; 84295; 84450; 84460; 85025

== ENCOUNTER 2017-01-24 16:00 | Outpatient (CLI) | payer MEDICARE, BC ==
[2017-01-24 16:42] LABS: ALT (SGPT) 150 U/L (0-55); AST (SGOT) 112 U/L (5-34); Bilirubin, Total 0.5 mg/dL (0.2-1.2); Calc. Creatinine Clearance 0 mL/min (70-130); Estimated GFR-MDRD Greater than 90; Magnesium 2.1 mg/dL (1.6-2.6)
[2017-01-24 16:47] LABS: Band 5 % (5-11); Hematocrit 34.5 % (42.0-52.0); Hypochromia SLIGHT = 6-15 cells (100X) (0-5/hpf); Mean Platelet Volume 7.8 fL (7.4-10.4); Neutrophil 83 % (42-75); Red Blood Cell (RBC) Count 3.81 mill/uL (4.70-6.10); White Blood Cell (WBC) Count 20.3 thou/uL (4.8-10.8)
== END 2017-01-24 16:01 | disposition home or self-care (01) ==
LOC: NAV LAB 16:00
PROVIDERS: ATTEND Clinical Nurse Specialist
DX: T45.1X5A Adverse effect of antineoplastic and immunosuppressive drugs, initial encounter (principal); C43.9 Malignant melanoma of skin, unspecified
CPT/HCPCS: 36415; 82247; 82330; 82565; 83735; 84100; 84132; 84295; 84450; 84460; 85025